=== PATIENT | male | born 1960 | race Caucasian/White ===

== ENCOUNTER → 2019-01-06 | Emergency (ER) | payer OTHER ==
[~2019-01-06] VITALS: Ht 188 cm; Wt 86.2 kg
== END | disposition left against medical advice (07) ==
LOC: ER 16:10
DX: S80.02XA Contusion of left knee, initial encounter (principal); S00.11XA Contusion of right eyelid and periocular area, initial encounter; W18.09XA Striking against other object with subsequent fall, initial encounter; Y93.01 Activity, walking, marching and hiking; Y92.488 Other paved roadways as the place of occurrence of the external cause; Y99.8 Other external cause status

== ENCOUNTER → 2020-05-03 | Emergency (ER) | payer OTHER ==
[~2020-05-03] VITALS: Ht 188 cm; Wt 72.6 kg
== END | disposition home or self-care (01) ==
LOC: ER 13:38
DX: H44.19 Other endophthalmitis (principal)